=== PATIENT | female | born 1965 | race Caucasian/White ===

== ENCOUNTER 2021-03-12 13:16 | Emergency (ER) | payer OTHER, SELFPAY ==
--- NOTE | ~2021-03-12 | CT_ITS ---
CT knee LT wo con DATE: 03/12/2021 16:30 INDICATION: Tibial plateau fracture TECHNIQUE: Axial CT images through the knee with sagittal and coronal reconstructions. Exam dose: 537.97 mGy-cm total exam DLP. COMPARISON: 03/12/2021 left knee and left femur FINDINGS: There is a mildly depressed fracture of the posterior aspect of the lateral tibial plateau, with associated hemarthrosis. Mild osteoarthritis of the knee joint. IMPRESSION: Mildly depressed posterior lateral tibial plateau fracture Reviewed, dictated and finalized at [facility]. Reviewed, dictated and finalized at [facility]. 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
--- NOTE | ~2021-03-12 | XR_ITS ---
XR femur LT min 2V DATE: 03/12/2021 14:56 INDICATION: Fall. Left leg injury, pain TECHNIQUE: AP and lateral views of the left femur COMPARISON: 03/12/2021 left knee FINDINGS: There is a fracture of the lateral tibial plateau with left knee effusion. There is periarticular spurring of the patella consistent with osteoarthritis. There is mild particul ar spurring of the lateral compartment as well. No fracture, dislocation, periosteal reaction or bone destruction of the left femur. Normal alignment of the left hip joint. The pubic symphysis and sacroiliac joints appear normally aligned. IMPRESSION: Left lateral tibial plateau fracture with left knee hemarthrosis Osteoarthritis of the left knee Reviewed, dictated and finalized at [facility]. 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
--- NOTE | ~2021-03-12 | XR_ITS ---
XR knee LT min 4V DATE: 03/12/2021 14:56 INDICATION: Fall. Left leg injury, pain TECHNIQUE: 4 views including crosstable lateral COMPARISON: None FINDINGS: There is lipohemarthrosis due to intra-articular fracture of the left lateral tibial platea u. There is osteoarthritic spurring of the patella. IMPRESSION: Intra-articular lateral tibial plateau fracture with hemarthrosis Reviewed, dictated and finalized at [facility]. 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
[2021-03-12 13:50] VITALS: BP 139/70; PULSE 83; RESP 15; TEMP 36.3; O2SAT 99
--- NOTE | 2021-03-12 14:43 | ED.FALL ---
HPI - Fall General Chief Complaint: Fall Stated Complaint: Left knee pain Time Seen by Provider: 03/12/21 14:24 Source: patient and RN notes reviewed Mode of arrival: EMS Limitations: no limitations History of Present Illness HPI Narrative: This is a 56 year old female who presents for evaluation of left lower extremity pain. Patient reports she accidentally slipped and her left leg went behind her. She reports pain to entire left lower extremity but most of pain is concentrated to left knee. She was given fentanyl 100 mcg by EMS in route to ER. She reports left foot numbness. She denies head injury, neck pain or LOC. Related Data Allergies Allergy/AdvReac Type Severity Reaction Status Date / Time erythromycin base Allergy Mild itching Verified 03/12/21 14:33 escitalopram [From Lexapro] AdvReac anxious Verified 03/12/21 14:33 metoclopramide [From Reglan] AdvReac hallucinati Verified 03/12/21 14:33 ons Review of Systems Review of Systems: All systems reviewed & are unremarkable except as noted in HPI and below PMFSH Past Medical History Medical History (Updated 03/12/21 @ 17:03 by Sara Huynh MD) Crohn disease Surgical History Surgical History (Updated 03/12/21 @ 14:44 by Sara Huynh MD) H/O bladder repair surgery History of partial hysterectomy Social History Social History (Updated 03/12/21 @ 14:44 by Sara Huynh MD) Smoking status: Never smoker Exam Const: General: alert Orientation/consciousness: patient oriented x3 HENMT: Head: normocephalic and atraumatic Face and sinus: face symmetric Eyes: EOM: EOMs intact bilaterally Resp: Effort & Inspection: normal respiratory effort Skin: General skin exam: normal color Rashes: no rashes Neuro: General: patient oriented x3, moves all extremities and CN's II-XI intact bilaterally Extrem: Other: TTP left suprapatella, palpable pedal pulses; left foot/ankle ROm intact, no foot drop; sensation intact Psych: Mental Status: mental status grossly normal Affect: normal affect Course Reevaluation(s) Reevaluation #1: I discussed with patient discharge plan and follow up. She understands she will be started on anticoagulation for DVT prophylaxis. She will hold her aspirin while on eliquis. She understands she will need to start until tomorrow at earliest. I Discussed discharge pain management. She would like to try oxycodone. Date: 03/12/21 Time: 17:13 Consultations Consultation #1: I discussed with Dr. Lockhart about patient injury. I discussed CT results. He states patient can be discharged with stricted non weight bearing. He reports risk of DVT so he recommends 2.5 mg eliquis BID for 30 days to start tomorrow. Patient will need to follow up in office. Date: 03/12/21 Time: 16:59 Vital Signs Vital signs: Vital Signs Temperature 97.3 F L 03/12/21 13:50 Pulse Rate 83 03/12/21 13:50 Respiratory Rate 15 03/12/21 13:50 Blood Pressure 139/70 03/12/21 13:50 Pulse Oximetry 99 03/12/21 13:50 Temperature 97.3 F L 03/12/21 13:50 Pulse Rate 78 03/12/21 17:14 Respiratory Rate 16 03/12/21 17:14 Blood Pressure 125/78 03/12/21 17:14 Pulse Oximetry 97 03/12/21 17:14 MDM - Fall Imaging Data Radiologist's impression: ITS Impressions Femur X-Ray 03/12/21 15:01 IMPRESSION: Left lateral tibial plateau fracture with left knee hemarthrosis Osteoarthritis of the left knee Knee X-Ray 03/12/21 15:03 IMPRESSION: Intra-articular lateral tibial plateau fracture with hemarthrosis Knee CT 03/12/21 16:47 IMPRESSION: Mildly depressed posterior lateral tibial plateau fracture Discharge Plan Discharge Clinical Impression: Closed fracture of left tibial plateau Qualifiers: Encounter type: initial encounter Qualified Code(s): S82.142A - Displaced bicondylar fracture of left tibia, initial encounter for closed fracture Patient Disposition: Home
[2021-03-12] MEDS: ONDANSETRON INJ 4 MG/2 ML VIAL IV PUSH (15:09)
[2021-03-12] MEDS: HYDROmorphone HCL INJ (*CRX) 1 MG/ML SYR 0.5 MG IV PUSH (15:09)
[2021-03-12 17:14] VITALS: BP 125/78; PULSE 78; RESP 16; O2SAT 97
== END 2021-03-12 17:55 | disposition home or self-care (01) ==
PROVIDERS: Emergency Provider General Practice; PCP Nurse Practitioner Adult Health
DX: S82.142A Displaced bicondylar fracture of left tibia, initial encounter for closed fracture (principal); K50.90 Crohn's disease, unspecified, without complications; M17.12 Unilateral primary osteoarthritis, left knee; W01.0XXA Fall on same level from slipping, tripping and stumbling without subsequent striking against object, initial encounter
CPT/HCPCS: 73552; 73564; 73700; 96361; 96365; 96375; 99284; J0131; J1170; J2405

== ENCOUNTER 2021-03-14 00:41 | Emergency (ER) | payer OTHER, SELFPAY ==
--- NOTE | ~2021-03-14 | CT_ITS ---
EXAMINATION: CT thoracic lumbar wo con DATE: 03/14/2021 02:11 INDICATION: Generalized back pain. Fall. TECHNIQUE: Computed tomography (CT) of the thoracic and lumbar spine was performed without intravenou s contrast. Automated exposure control and iterative reconstruction technique were employed. The dose -length product was 2279.18 mGy-cm. COMPARISON: None FINDINGS: CT THORACIC SPINE: A calcified left lung nodule and calcified left hilar and mediastinal lymph nodes are consistent with old granulomatous disease. There is 5 degrees dextrocurvature of thoracic spine. Vertebral body heights are normal. There is mildly decreased disc height from T3-T4 through T10-T11. There is a hemangioma in T5 vertebral body. There is multilevel mild facet joint osteoarthritis. No n eural foraminal stenosis or central canal stenosis. CT LUMBAR SPINE: There is 4 degrees levocurvature of lumbar spine. Vertebral body heights are normal. There is mildly decreased disc height at L3-L4. The following disc levels are specifically discussed : L1-L2: The disc does not extend beyond the endplate margin. There is no facet joint osteoarthritis. T here is no neural foraminal stenosis. There is no central canal stenosis. L2-L3: The disc does not extend beyond the endplate margin. There is mild bilateral facet joint osteo arthritis. There is no neural foraminal stenosis. There is no central canal stenosis. L3-L4: The disc is bulging. There is mild bilateral facet joint osteoarthritis. There is mild bilater al neural foraminal stenosis. There is mild central canal stenosis. L4-L5: The disc is bulging. There is mild bilateral facet joint osteoarthritis. There is mild bilater al neural foraminal stenosis. There is mild central canal stenosis. L5-S1: The disc does not extend beyond the endplate margin. There is mild bilateral facet joint osteo arthritis. There is no neural foraminal stenosis. There is no central canal stenosis. IMPRESSION: 1. No fracture. 2. Mild thoracic and lumbar spondylosis. Reviewed, dictated and finalized at location [facility]. 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
--- NOTE | ~2021-03-14 | CT_ITS ---
EXAMINATION: CT brain wo con DATE: 03/14/2021 02:10 INDICATION: Head injury. Loss of consciousness. TECHNIQUE: Computed tomography (CT) of the head was performed without intravenous contrast. The mA wa s adjusted according to patient size. Iterative reconstruction technique was employed. The dose-lengt h product was 681.00 mGy-cm. COMPARISON: None FINDINGS: There is no intracranial hemorrhage, acute infarction, or abnormal intracranial mass lesion . The ventricles are normal in size. There is mild mucosal thickening in the ethmoid sinuses. The orb its are normal. The mastoid air cells are normal. IMPRESSION: 1. Normal brain. Reviewed, dictated and finalized at location [facility]. 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 Normal brain.
--- NOTE | ~2021-03-14 | CT_ITS ---
EXAMINATION: CT cervical spine wo con DATE: 03/14/2021 02:11 INDICATION: Diffuse back pain. Fall. TECHNIQUE: Computed tomography (CT) of the cervical spine was performed without intravenous contrast. Automated exposure control and iterative reconstruction technique were employed. The dose-length pro duct was 454.76 mGy-cm. COMPARISON: None FINDINGS: There is mild kyphosis of cervical spine. C1 ring is ununited posteriorly, a normal variant . There is mild chronic anterior wedging of C5 vertebral body. There is mildly decreased disc height at C3-C4 and C4-C5. The following disc levels are specifically discussed: C2-C3: There is no uncovertebral joint osteoarthritis. There is no facet joint osteoarthritis. There is no neural foraminal stenosis. There is no central canal stenosis. C3-C4: There is no uncovertebral joint osteoarthritis. There is mild left facet joint osteoarthritis. There is no neural foraminal stenosis. There is no central canal stenosis. C4-C5: There is mild right uncovertebral joint osteoarthritis. There is mild bilateral facet joint os teoarthritis. There is no neural foraminal stenosis. There is no central canal stenosis. C5-C6: There is no uncovertebral joint osteoarthritis. There is no facet joint osteoarthritis. There is no neural foraminal stenosis. There is no central canal stenosis. C6-C7: There is no uncovertebral joint osteoarthritis. There is no facet joint osteoarthritis. There is no neural foraminal stenosis. There is no central canal stenosis. C7-T1: There is no uncovertebral joint osteoarthritis. There is mild bilateral facet joint osteoarthr itis. There is no neural foraminal stenosis. There is no central canal stenosis. IMPRESSION: 1. No fracture. 2. Mild cervical spondylosis. Reviewed, dictated and finalized at location A. PRINTER INSTALLER
[2021-03-14 00:54] VITALS: BP 143/72; PULSE 81; RESP 16; O2SAT 97
--- NOTE | 2021-03-14 01:12 | ED.FALL ---
HPI - Fall General Chief Complaint: Fall Stated Complaint: Fall yesterday, pain today Time Seen by Provider: 03/14/21 00:57 Source: patient History of Present Illness HPI Narrative: Patient returns ER increased pain. Patient reports she fell yesterday slipped on the ground. She thinks maybe she was knocked unconscious she came to the ER had imaging performed of her lower extremity where she had maximal pain and she was diagnosed with a tibial plateau fracture she was to follow-up with orthopedics on Sunday. She returns today as she is now having diffuse back pain which is not previously present. She reports she has been bedbound since her ER evaluation. Related Data Allergies Allergy/AdvReac Type Severity Reaction Status Date / Time erythromycin base Allergy Mild itching Verified 03/12/21 14:33 escitalopram [From Lexapro] AdvReac anxious Verified 03/12/21 14:33 metoclopramide [From Reglan] AdvReac hallucinati Verified 03/12/21 14:33 ons Review of Systems Review of Systems: CONSTITUTIONAL: Denies fever, chills, or sweats. EYES: Denies visual changes, redness, or discharge. ENT: Denies rhinorrhea, congestion, sore throat, or otalgia. CARDIOVASCULAR: Denies chest pain, palpitations, or edema. RESPIRATORY: Denies cough or dyspnea. GASTROINTESTINAL: Denies abdominal pain, nausea, vomiting, or diarrhea. GENITOURINARY: Denies dysuria or hematuria. SKIN: Denies rash or itching. MUSCULOSKELETAL: Reports diffuse back pain left lower extremity pain NEUROLOGIC: Denies headache, numbness, dizziness, or weakness. PSYCHIATRIC: Denies anxiety or depression. All systems reviewed & are unremarkable except as noted in HPI and below PMFSH Past Medical History Medical History Crohn disease Surgical History Surgical History H/O bladder repair surgery History of partial hysterectomy Social History Social History Smoking status: Never smoker Exam Narrative: GENERAL: Well-appearing, well-nourished, and in no acute distress. HEAD: Normocephalic, atraumatic. EYES: PERRLA and EOMI. ENT: Nares clear, no rhinorrhea or epistaxis. Mucous membranes moist. NECK: Supple. No masses. No JVD CHEST: Clear to auscultation. No respiratory distress. No wheezes rales or rhonchi HEART: Regular rate and rhythm. No murmur heard. Normal peripheral pulses. ABDOMEN: Soft, nontender, nondistended, normal active bowel sounds. Back: Diffuse back pain from the C-spine to the L-spine there is no focal bony tenderness however there is pain midline there is no obvious deformity there is no ecchymoses there are no step-offs. EXTREMITIES: Normal range of motion. No edema. SKIN: Warm, dry, no rash. NEURO: 5 out of 5 strength in the right lower extremity with dorsi and plantar flexion sensation intact to light touch. 4-5 strength in the left lower extremity dorsi and plantar flexion limited by pain sensation intact to light touch. Alert and oriented x3. PSYCH: Normal mood and affect. Course Reevaluation(s) Reevaluation #1: Patient ports feeling much improved imaging reviewed with patient. Patient is comfortable with outpatient plan. Date: 03/14/21 Time: 03:57 Vital Signs Vital signs: Vital Signs Pulse Rate 81 03/14/21 00:54 Respiratory Rate 16 03/14/21 00:54 Blood Pressure 143/72 H 03/14/21 00:54 Pulse Oximetry 97 03/14/21 00:54 Pulse Rate 81 03/14/21 05:21 Respiratory Rate 16 03/14/21 05:21 Blood Pressure 126/71 03/14/21 05:21 Pulse Oximetry 96 03/14/21 05:21 MDM - Fall MDM Narrative Medical decision making narrative: H&P as above, vss, pt looks clinically well, exam without focal neurological deficits obvious deformity, without acute process, additional labs/img considered.imaging was ordered due to patient's repeat ER evaluation and worsening pain symptomati
--- NOTE | 2021-03-14 01:34 | PC.NURSE ---
pt in ct, ct called and said pt has anxiety in small places, and is requesting meds to help with her going into the ct scanner. vrbo dr lima for ativan 1 iv.
[2021-03-14] MEDS: MORPHINE SULFATE (*CRX) 4 MG/ML INJ IV PUSH (01:50)
[2021-03-14] MEDS: LORazepam INJ (*CRX) 2 MG/ML VIAL 1 MG IV PUSH (01:50)
--- NOTE | 2021-03-14 02:14 | PC.NURSE ---
Assumed care of pt at this time. Report received from Falguni GREGORY
--- NOTE | 2021-03-14 02:23 | PC.NURSE ---
Pt states she feels more relaxed after medication administration. Lights dimmed, family at bedside
[2021-03-14 03:19] VITALS: BP 129/67; PULSE 94; RESP 18; O2SAT 98
[2021-03-14 05:21] VITALS: BP 126/71; PULSE 81; RESP 16; O2SAT 96
== END 2021-03-14 05:21 | disposition home or self-care (01) ==
PROVIDERS: Emergency Provider Emergency Medicine
DX: S39.92XA Unspecified injury of lower back, initial encounter (principal); K50.90 Crohn's disease, unspecified, without complications; M47.816 Spondylosis without myelopathy or radiculopathy, lumbar region; M47.814 Spondylosis without myelopathy or radiculopathy, thoracic region; M47.812 Spondylosis without myelopathy or radiculopathy, cervical region; W01.0XXA Fall on same level from slipping, tripping and stumbling without subsequent striking against object, initial encounter
CPT/HCPCS: 70450; 72125; 72128; 72131; 96374; 96375; 99284; J2060; J2270